=== PATIENT | male | born 1960 | race Caucasian/White ===

== ENCOUNTER 2018-01-13 00:18 | Emergency (ER) | payer BC, MEDICAID ==
[2018-01-13 01:28] VITALS: RESP 18; TEMP 97.8
[2018-01-13] MEDS ORDERED: Oxycodone/Acetaminophen 5/325 mg Tab PO STA (02:21)
--- NOTE | 2018-01-13 02:37 | ED PDOC ---
Arrival/HPI - General Chief Complaint: Finger,Hand,&Wrist Time Seen by Provider: 01/13/18 01:35 Historian: Patient - History of Present Illness Narrative History of Present Illness (Text): 01/13/18 01:38 57 year old male, with no significant past medical history, presents to the emergency department s/p right hand caught on the garage door tonight. Patient sustained bruising and laceration to the fingers. Patient denies any fever, chills, chest pain, shortness of breath, nausea, vomiting, diarrhea, urinary symptoms, back pain, neck pain, headache, dizziness, or any other complaints. Time/Duration: 1-3 hours Symptom Onset: Sudden Symptom Course: Unchanged Activities at Onset: Light Context: Home Past Medical History - Provider Review Nursing Documentation Reviewed: Yes - Cardiac Hx Hypertension: Yes - Pulmonary Hx Respiratory Disorders: No - Neurological Hx Neurological Disorder: No - HEENT Hx HEENT Disorder: No - Renal Hx Renal Disorder: No - Endocrine/Metabolic Hx Endocrine Disorders: No Hx Diabetes Mellitus Type 2: Yes - Hematological/Oncological Hx Blood Disorders: No - Integumentary Hx Dermatological Disorder: No - Musculoskeletal/Rheumatological Hx Musculoskeletal Disorders: No - Gastrointestinal Hx Gastrointestinal Disorders: No - Genitourinary/Gynecological Hx Genitourinary Disorders: No - Psychiatric Hx Psychophysiologic Disorder: No Hx Substance Use: No - Surgical History Hx Cardiac Catheterization: Yes (2009) Family/Social History - Physician Review Nursing Documentation Reviewed: Yes Family/Social History: No Known Family HX Smoking Status: Former Smoker Hx Alcohol Use: No Hx Substance Use: No Allergies/Home Meds Allergies/Adverse Reactions: Allergies Penicillins Allergy (Severe, Verified 01/13/18 01:21) RASH Home Medications: Home Meds Medication Instructions Recorded Confirmed Unobtainable 01/13/18 01/13/18 Review of Systems - Physician Review All systems were reviewed & negative as marked: Yes - Review of Systems Constitutional: absent: Fevers, Other (Chills) Respiratory: absent: SOB Cardiovascular: absent: Chest Pain Gastrointestinal: absent: Diarrhea, Nausea, Vomiting Genitourinary Male: absent: Dysuria, Frequency, Hematuria Musculoskeletal: absent: Back Pain, Neck Pain Skin: Laceration (and bruising to the fingers.) Neurological: absent: Headache, Dizziness Physical Exam Vital Signs Reviewed: Yes Vital Signs Temp Pulse Resp BP Pulse Ox 01/13/18 05:25 80 18 110/78 100 01/13/18 01:22 97.8 F 79 18 108/73 96 Temperature: Afebrile Blood Pressure: Normal Pulse: Regular Respiratory Rate: Normal Appearance: Positive for: Well-Appearing, Non-Toxic, Comfortable Pain Distress: None Mental Status: Positive for: Alert and Oriented X 3 - Systems Exam Head: Present: Atraumatic, Normocephalic Pupils: Present: PERRL Extroacular Muscles: Present: EOMI Conjunctiva: Present: Normal Mouth: Present: Moist Mucous Membranes Neck: Present: Normal Range of Motion Respiratory/Chest: Present: Clear to Auscultation, Good Air Exchange. No: Respiratory Distress, Accessory Muscle Use Cardiovascular: Present: Regular Rate and Rhythm, Normal S1, S2. No: Murmurs Abdomen: No: Tenderness, Distention, Peritoneal Signs Back: Present: Normal Inspection Upper Extremity: Present: Other (2cm laceration to the volar aspect of the mid right 3rd digit/small subungual hematoma right 4th finger ). No: Cyanosis, Edema Lower Extremity: Present: Normal Inspection. No: Edema Neurological: Present: GCS=15, CN II-XII Intact, Speech Normal Skin: Present: Warm, Dry, Normal Color. No: Rashes Psychiatric: Present: Alert, Oriented x 3, Normal Insight, Normal Concentration Medical Decision Making ED Course and Treatment: 01/13/18 01:38 Impression: 57 year old male presents s/p right hand caught on garage door. Physical exam showed a 2cm laceration of the right 3rd digit and Ecchymotic bruising of the 3rd and 4th digit. Plan: -- Percocet -- Hand Right 3 view X-Ray -- Reassess and disposition Progress Notes: 01/13/18 03:07 Hand Right 3 View X-Ray Impression: As read by me, fracture to the distal tuft tight 3rd finger. 01/13/18 04:03 PROCEDURE: LACERATION REPAIR Performed by the emergency provider Location: Volar aspect of the right 3rd digit Length: 2 cm Description: {"clean wound edges","no foreign bodies"} Distal CMS: Normal. No deficits. Neurovascularly intact. Anesthesia: Lidocaine 1% Preparation: The wound was cleaned with NS and Betadyne. The area was prepped and draped in the usual sterile fashion. Exploration: The wound was explored and no foreign bodies were found. Procedure: The wound was closed with 4.0 nylon. There was {good} approximation. In total, 4 were used. Sterile strips used after. Post-Procedure: Good closure and hemostasis. The patient tolerated the procedure well and there were no complications. CSM remains intact. Post procedure dressing applied. 01/13/18 04:33 PROCEDURE: Drainage Performed by the emergency provider Location: Right 4th finger Description: Subungual hematoma Procedure: Was drained using a heat cautery. Post-Procedure: The patient tolerated the procedure well and there were no complications. 01/13/18 05:26 On re-evaluation, patient feels better and is in no acute distress. I have discussed the results and plan with the patient, who expresses understanding. Patient in agreement with plan to be discharged home. Patient is stable for discharge. Patient was instructed to follow up with physician or return if symptoms worsen or new concerning symptoms arise. - RAD Interpretation Radiology Orders: 01/13/18 01:38 HAND RIGHT 3 VIEWS [RAD] Stat - Medication Orders Current Medication Orders: Discontinued Medications Oxycodone/Acetaminophen (Percocet 5/325 Mg Tab) 1 tab PO STAT STA Stop: 01/13/18 02:22 Last Admin: 01/13/18 02:30 Dose: 1 tab MAR Pain Assessment Document 01/13/18 02:30 AD (Rec: 01/13/18 02:56 AD [id number]) Pain Reassessment Is this a pain reassessment? No Pain Scale Used Pain Scale Used Numeric Description Intensity of Pain at present 8 Tetanus/Reduced Diphtheria/Acell Pertussis (Boostrix Vaccine Inj) 0.5 ml IM .ONCE ONE Stop: 01/13/18 04:32 Last Admin: 01/13/18 04:54 Dose: 0.5 ml Immunization Registry Document 01/13/18 04:54 AD (Rec: 01/13/18 04:54 AD [id number]) Immunization Registry Consent Date 01/13/18 - Scribe Statement The provider has reviewed the documentation as recorded by the Markibjames Whitaker Provider Scribe Attestation: All medical record entries made by the Scribe were at my direction and personally dictated by me. I have reviewed the chart and agree that the record accurately reflects my personal performance of the history, physical exam, medical decision making, and the department course for this patient. I have also personally directed, reviewed, and agree with the discharge instructions and disposition. Disposition/Present on Arrival - Present on Arrival Any Indicators Present on Arrival: No History of DVT/PE: No History of Uncontrolled Diabetes: No Urinary Catheter: No History of Decub. Ulcer: No History Surgical Site Infection Following: Obstetrical/Gynecological Surgery - Disposition Have Diagnosis and Disposition been Completed?: Yes Diagnosis: Finger laceration, Finger fracture, Subungual hematoma Disposition: HOME/ ROUTINE Disposition Time: 04:28 Patient Plan: Discharge Condition: STABLE Discharge Instructions (ExitCare): Laceration Repair With Stitches (DC), Finger Fracture (DC) Additional Instructions: Maintain finger splint/keep area clean/follow up with the orthopedist this week/ follow up for suture removal in 7 days Referrals: Roya Katz MD [Staff Provider] - Follow up with primary Forms: [facility] [facility] (Vietnamese)
[2018-01-13] MEDS ORDERED: Lidocaine 1% Inj (20ml) ONE (04:06)
[2018-01-13] MEDS ORDERED: TDAP Vaccine 0.5 mL Syr IM ONE (04:31)
[2018-01-13 05:33] VITALS: BP 110/78; PULSE 80; O2SAT 100
--- NOTE | 2018-01-13 09:35 | RAD ---
PROCEDURE: Right Hand Radiographs. HISTORY: injury COMPARISON: None. FINDINGS: BONES: Nondisplaced transverse fractures are seen through the tips of the 3rd and 4th distal phalanges. JOINTS: Normal. No osteoarthritic changes. SOFT TISSUES: Normal. OTHER FINDINGS: None. IMPRESSION: Nondisplaced transverse fractures are seen through the tips of the 3rd and 4th distal phalanges.
== END 2018-01-13 05:25 | disposition home or self-care (01) ==
LOC: ED 00:18
DX: S61.212A Laceration without foreign body of right middle finger without damage to nail, initial encounter (principal); S60.041A Contusion of right ring finger without damage to nail, initial encounter; S62.662A Nondisplaced fracture of distal phalanx of right middle finger, initial encounter for closed fracture; S62.664A Nondisplaced fracture of distal phalanx of right ring finger, initial encounter for closed fracture; W23.0XXA Caught, crushed, jammed, or pinched between moving objects, initial encounter; Y92.008 Other place in unspecified non-institutional (private) residence as the place of occurrence of the external cause; Z23 Encounter for immunization